=== PATIENT | male | born 1975 | race Caucasian/White ===

== ENCOUNTER 2021-03-19 05:19 | Emergency (ER) | payer MEDICAID, SELFPAY ==
[2021-03-19 05:23] VITALS: BP 194/109; PULSE 102; RESP 16; TEMP 36.9; O2SAT 100; BMI 26.7
== END 2021-03-19 05:30 | disposition left against medical advice (07) ==
LOC: ED 05:36
DX: Z53.21 Procedure and treatment not carried out due to patient leaving prior to being seen by health care provider (principal)
CPT/HCPCS: 99281

== ENCOUNTER 2021-08-13 11:33 | Emergency (ER) | payer MEDICAID, SELFPAY ==
[2021-08-13 11:34] VITALS: BP 141/92; PULSE 89; RESP 16; TEMP 36.6; O2SAT 97; BMI 26.4
--- NOTE | 2021-08-13 11:57 | EX.ED.DYSGE1 ---
HPI History of Present Illness Chief Complaint: Rash Narrative Narrative: 46-year-old male presenting for evaluation of an area on his skin which he is concerned is black mold. He states he believes he was at a friend's house who has black mold in it. He states that he believes that she does not know she has black mold in her house since she is chronically supposed to it. There is been no testing at her house for black mold. Patient states the area on his left upper arm is mildly itchy maybe. He has no respiratory complaints. No systemic signs or symptoms. He was able to show me a picture of 3 black spots on his arm which are much improved on examination [facility] Medical History Bipolar disorder Pancreatitis PTSD (post-traumatic stress disorder) Home Medications NK 03/19/21 [History Last Taken Unknown] Allergy/AdvReac Type Severity Reaction Status Date / Time No Known Allergies Allergy Verified 08/13/21 11:36 Social History Smoking Status: Current every day smoker tobacco type: cigarettes ROS ROS ED Constitutional Constitutional ED: Denies chills or fever(s) Eyes Eyes: Denies blurry vision or change in vision ENT ENT ED: Denies rhinorrhea or sore throat Cardiovascular Cardiovascular: Denies chest pain, palpitations or racing heartbeat Respiratory/Chest Respiratory/Chest: Denies cough or dyspnea Gastrointestinal Gastrointestinal: Denies abdominal pain or constipation Genitourinary Genitourinary ED: Denies dysuria or hematuria Musculoskeletal Musculoskeletal: Denies arthralgias or back pain Integumentary Reports other Details: Black spots on left upper arm ; Denies abscess or Abrasions Neurologic Neurologic: Denies headache(s) or paresthesias Psychiatric Psychiatric: Denies anxiety or depression EXAM Physical Exam Const Vital Signs: 08/13/21 11:34 Temperature 97.9 F Temperature Source Temporal Pulse Rate 89 Respiratory Rate 16 Blood Pressure 141/92 H Blood Pressure Mean 108 Pulse Ox 97 Oxygen Delivery Method Room Air Positive well nourished General Appearance ED: NAD HEENT Reports moist mucous membranes and dry mucous membranes Mouth ED: Yes dry mucous membranes Mouth: dry mucous membranes Eyes PERRL and EOMs intact bilaterally Chest Wall inspection of chest normal Resp normal respiratory effort and clear to auscultation bilaterally Cardio regular rate and regular rhythm GI normal to inspection, nondistended, normoactive bowel sounds Neuro oriented x3 and CN's II-XII intact bilaterally Psych mental status grossly normal Skin Skin Narrative: 3 black circular spots on the left brachial area. No surrounding induration or erythema. Nontender. No lymphangitic streaking. No fluctuance. These are about 1/4 cm each. MDM MDM MDM Narrative Medical decision making narrative: Patient presenting for evaluation of what he believes is black mold although he has no diagnosis of black mold. He has no systemic signs or symptoms. No respiratory complaints. The black spots on his upper arm were wiped away with soapy water and paper towel. I do not believe this was black mold. I counseled him to monitor this if there is any change to return to the ER otherwise he states he can follow-up with his PCP. I did rehabilitation counsellor him if he believes there is black mold that he placed that he is going he should stay away from there. Patient acknowledged understanding. Impression: 1. Feared complaint not found Discharge Plan Triage Chief Complaint: Rash ED Provider: Tomer Newton Dx/Rx/DC Orders Instructions: ED Symptoms With Uncertain Cause Prescriptions: No Action NK Primary Care Provider: Care Physician,No Primary Referrals: Care Physician,No Primary [Primary Care Provider] - Disposition Disposition: Home, Self Care
== END 2021-08-13 12:11 | disposition home or self-care (01) ==
LOC: ED 12:09
PROVIDERS: Emergency Provider Student in an Organized Health Care Education/Training Program; PCP Family Medicine; Visit Provider Student in an Organized Health Care Education/Training Program
DX: Z71.1 Person with feared health complaint in whom no diagnosis is made (principal); F17.210 Nicotine dependence, cigarettes, uncomplicated
CPT/HCPCS: 99282

== ENCOUNTER → 2022-01-01 | Outpatient (CLI) | payer MEDICAID, SELFPAY ==
[2022-01-01 16:37] LABS: Platelet Count 282 K/mm3 (150-450)
[2022-01-01 17:13] LABS: Valproic Acid (Depakene) Level 62 ug/mL (50-100)
[2022-01-01 17:16] LABS: AST(SGOT) 14 U/L (15-37); Alanine Aminotransfer ALT/SGPT 28 U/L (16-61); Albumin, Serum 3.7 g/dL (3.2-5.0); Alkaline Phosphatase 63 U/L (45-117); Globulin 3.2 g/dL (2.2-4.2); Protein, Total 6.9 g/dL (6.4-8.2); Sodium Level 142 mmol/L (136-145)
== END | disposition home or self-care (01) ==
LOC: LAB 16:20
PROVIDERS: PCP Family Medicine; Visit Provider Registered Nurse
DX: F31.81 Bipolar II disorder (principal); F19.10 Other psychoactive substance abuse, uncomplicated; R53.83 Other fatigue; Z79.899 Other long term (current) drug therapy
CPT/HCPCS: 36415; 80076; 80164; 84295; 85049